=== PATIENT | male | born 1930 | race Caucasian/White ===

== ENCOUNTER 2019-01-21 09:45 | Emergency (ER) | payer MEDICARE, OTHER ==
--- NOTE | 2019-01-21 10:04 | ED Physician Documentation ---
History of Present Illness - Stated complaint Stated Complaint: HEADACHE - Chief complaint Chief Complaint: Neuro - History obtained from History obtained from: Patient - Additonal information Additional information: Patient is a 89-year-old male with history of hypertension, migraines, GERD presenting with headache similar to previous migraine episodes. Patient reports he has been diagnosed with migraines in the past and has had evaluation for such, although he does not take regular preventative medications or have treatment medications at home available to him. Patient reports that he often experiences a migraine about once a month that will resolve spontaneously. However, patient has felt his migraine-like pain over the past several days without inciting incident, fall, trauma, or illness. Patient describes frontal headache with photosensitivity and visual aura which she specifies as shapes and floaters. Patient denies other vision loss, nausea, vomiting, chest pain, difficulty breathing, abdominal pain, urinary or stool changes, fever. No other improving or worsening factors noted. Review of Systems Constitutional: denies: Fever Eyes: reports: Photophobia Cardiac: denies: Chest pain / pressure Respiratory: denies: Dyspnea GI: denies: Abdominal Pain, Nausea, Vomiting, Diarrhea : denies: Dysuria Neurologic: reports: Headache. denies: Generalized weakness, Focal weakness, Numbness, Head injury PD PAST MEDICAL HISTORY - Past Medical History Past Medical History: Yes Cardiovascular: Hypertension Neuro: Migraines GI: GERD : Other Other Past Medical History: prostate ca - Past Surgical History Past Surgical History: Yes General: Cholecystectomy Ortho: Shoulder arthroplasty, Other - Present Medications Home Medications: Ambulatory Orders Medication Instructions Recorded Confirmed Losartan [Cozaar] 50 mg PO DAILY 01/21/19 01/21/19 diazePAM [Valium] 5 mg PO DAILY PM 01/21/19 01/21/19 - Allergies Allergies/Adverse Reactions: Allergies Allergy/AdvReac Type Severity Reaction Status Date / Time No Known Drug Allergies Allergy Verified 01/21/19 09:55 - Social History Does the pt smoke?: No Smoking Status: Never smoker Does the pt drink ETOH?: No Does the pt have substance abuse?: No PD ED PE NORMAL - Vitals Vital signs reviewed: Yes - General General: Alert and oriented X 3, No acute distress, Well developed/nourished - HEENT HEENT: Atraumatic, PERRL (Gross visual acuity intact. No nystagmus.), EOMI, Moist mucous membranes, Pharynx benign - Neck Neck: Supple, no meningeal sign - Cardiac Cardiac: RRR, No murmur - Respiratory Respiratory: No respiratory distress, Clear bilaterally - Abdomen Abdomen: Soft, Non tender, Non distended - Derm Derm: Normal color, Warm and dry, No rash - Extremities Extremities: No deformity, No tenderness to palpate - Neuro Neuro: Alert and oriented X 3, No motor deficit, No sensory deficit - Psych Psych: Normal mood, Normal affect Results - Vitals Vitals: Vital Signs - 24 hr 01/21/19 01/21/19 01/21/19 09:53 11:33 12:00 Temperature 36.5 C Heart Rate 47 L 44 L 56 L Respiratory 18 16 15 Rate Blood Pressure 191/56 H 192/75 H 182/139 H O2 Saturation 99 100 97 Oxygen O2 Source Room air - Labs Labs: Laboratory Tests 01/21/19 01/21/19 01/21/19 12:40 12:40 12:40 WBC 4.5 L RBC 4.59 L Hgb 14.7 Hct 44.2 MCV 96.3 H MCH 32.0 H MCHC 33.3 RDW 11.9 L Plt Count 154 MPV 11.8 H Neut # (Auto) 2.9 Lymph # (Auto) 1.0 L [place] # (Auto) 0.5 Eos # (Auto) 0.1 Baso # (Auto) 0.0 Absolute Nucleated RBC 0.00 Nucleated RBC % 0.0 Sodium 141 Potassium 4.2 Chloride 106 Carbon Dioxide 24 Anion Gap 11.0 BUN 17 Creatinine 1.0 Estimated GFR (MDRD) 70 L Glucose 105 H Calcium 8.2 L Total Bilirubin 0.8 AST 18 ALT 16 Alkaline Phosphatase 68 Troponin I High Sens 4.3 Total Protein 6.2 L Albumin 3.4 Globulin 2.8 Albumin/Globulin Ratio 1.2 Lipase 25 PD MEDICAL DECISION MAKING - ED course Complexity details: reviewed results, re-evaluated patient, considered differential, d/w patient ED course: Patient is traveling from [place] and reports monthly migraine-like headaches for some time now that have acutely worsenedOver the last several days without other illness, inciting incident, or trauma. Patient denies neurological changes that raise high suspicion for intracranial injury, thrombus, bleed or stroke, but obtained CT head imaging to further evaluate. Patient also has history of hypertension and is hypertensive in the ED and therefore have concerns of hypertensive urgency or emergency. CT head did not find evidence of acute pathology, but chronic changes likely due to underlying disease processes. Patient also is adamant of a migraine history and known diagnoses for which she has been evaluated and symptoms are similar to such. Patient started on IV fluid, as well as migraine cocktail in addition to antihypertensive. Repeat blood pressures decreased appropriately and patient did report improvement of symptoms although not complete resolution. Screening lab work also obtained which returned relatively unremarkable including no evidence of elevated troponin, acute kidney injury, or significant pathology. Do not find evidence of acute endorgan damage otherwise. Had multiple conversations with patient emphasizing the need for close primary care follow-up even if only over the phone to discuss persistent elevated blood pressures and dosing of antihype rtensives and potential other medication therapy. Also discussed strict return precautions and other supportive cares. Patient voiced understanding and is comfortable with discharge plan. Departure - Departure Disposition: 01 Home, Self Care Clinical Impression: Headache Qualifiers: Headache type: unspecified Headache chronicity pattern: unspecified pattern Intractability: not intractable Qualified Code(s): R51 - Headache Hypertension Qualifiers: Hypertension type: unspecified Qualified Code(s): I10 - Essential (primary) h ypertension Condition: Good Instructions: ED Headache Migraine, ED HTN Established Follow-Up: your,doctor [Other] - Within 3 Days Comments: Please continue home medications as previously instructed. Please follow-up with your primary care physician in next 2 to 3 days to discuss persistent elev ation in your blood pressure and possible need to increase your blood pressure medication or even add a new blood pressure medication as this high blood pressure could be causing your headaches and other health issues. Return to ED sooner if experience worsening symptoms or have other concerns.
[2019-01-21] MEDS ORDERED: ONDANSETRON 4 MG/2 ML VIAL IVP STA (10:17)
[2019-01-21] MEDS ORDERED: METOCLOPRAMIDE 10 MG/2 ML VIAL IVP STA (10:17)
[2019-01-21] MEDS ORDERED: SODIUM CHLORIDE 0.9% 1,000 ML IV ONE (10:17)
[2019-01-21] MEDS ORDERED: diphenhydrAMINE INJ 50 MG/ML VIAL IVP STA (10:17)
--- NOTE | 2019-01-21 11:28 | CT Report ---
Reason: headache with htn, visual changes Procedure Date: 01/21/2019 Accession Number: [id number] / [id number] Procedure: CT - HEAD WO CPT Code: FULL RESULT: EXAM: CT HEAD EXAM DATE: 01/21/2019 10:46 AM. CLINICAL HISTORY: Headache with htn, visual changes. COMPARISON: None. TECHNIQUE: Multiaxial CT images were obtained from the foramen magnum to the vertex. Reformats: Sagittal and coronal. IV contrast: None. In accordance with CT protocol optimization, one or more of the following dose reduction techniques were utilized for this exam: automated exposure control, adjustment of mA and/or KV based on patient size, or use of iterative reconstructive technique. FINDINGS: Parenchyma: No intraparenchymal hemorrhage. No evidence of mass, midline shift, or CT findings of infarction. Palomares-white differentiation is distinct. Moderate patchy hypodensity in the periventricular white matter and centrum semiovale, nonspecific but probably chronic microvascular ischemic change. Extraaxial Spaces: Normal for age. No subdural or epidural collections identified. Ventricles: Normal in size and position accounting for mild generalized cerebral and cerebellar volume loss. Sinuses and Orbits: Probable small mucous retention cyst or polyp, right sphenoid sinus, left maxillary sinus, partially visualized. Imaged paranasal sinuses, orbits, and mastoids otherwise show no significant abnormality. Bones: No evidence of fracture or calvarial defect. Other: None. IMPRESSION: 1. No definite acute intracranial abnormality. 2. Chronic atrophic and probable microvascular ischemic changes as noted above. RADIA
[2019-01-21] MEDS ORDERED: METOPROLOL 5 MG/5 ML VIAL IVP STA (11:47)
[2019-01-21] MEDS ORDERED: LABETALOL 5 MG/1 ML 20 ML MDV IVP STA (11:47)
[2019-01-21 12:58] LABS: BASOPHILS % (AUTO) 0.7 %; EOSINOPHILS # (AUTO) 0.1 10^3/uL (0.0-0.7); EOSINOPHILS % (AUTO) 1.1 %; HGB - HEMOGLOBIN 14.7 g/dL (14.0-18.0); LYMPHOCYTES % (AUTO) 22.9 %; MEAN CORPUSCULAR HGB CONC 33.3 g/dL (32.0-36.0); MEAN CORPUSCULAR VOLUME 96.3 fL (80.0-94.0); MEAN PLATELET VOLUME 11.8 fL (7.4-11.4); MONOCYTES # (AUTO) 0.5 10^3/uL (0.0-1.0); MONOCYTES % (AUTO) 11.6 %; NEUTROPHILS # (AUTO) 2.9 10^3/uL (1.5-6.6); NEUTROPHILS % (AUTO) 63.3 %; PLT - PLATELET COUNT 154 10^3/uL (130-450); RED BLOOD COUNT 4.59 10^6/uL (4.70-6.10); RED CELL DISTRIBUTION WIDTH 11.9 % (12.0-15.0); WHITE BLOOD COUNT 4.5 x10^3/uL (4.8-10.8)
[2019-01-21 13:03] LABS: ALBUMIN 3.4 g/dL (3.2-5.5); ALBUMIN/GLOBULIN RATIO 1.2 (1.0-2.2); BILIRUBIN,TOTAL 0.8 mg/dL (0.2-1.0); CALCIUM 8.2 mg/dL (8.5-10.3); TOTAL PROTEIN 6.2 g/dL (6.7-8.2)
[2019-01-21 13:33] VITALS: BP 163/71
== END 2019-01-21 13:40 | disposition home or self-care (01) ==
LOC: ED 09:45
DX: R51 Headache (principal); H53.149 Visual discomfort, unspecified; I10 Essential (primary) hypertension; Z86.69 Personal history of other diseases of the nervous system and sense organs; K21.9 Gastro-esophageal reflux disease without esophagitis
CPT/HCPCS: 36415; 70450; 80053; 83690; 84484; 85025; 96361; 96374; 96375; 99284; 99285; J1200; J2765

== ENCOUNTER 2019-01-31 10:27 | Emergency (ER) | payer MEDICARE, OTHER ==
--- NOTE | 2019-01-31 11:28 | ED Physician Documentation ---
History of Present Illness - Stated complaint Stated Complaint: HIGH BLOOD PRESSURE - Chief complaint Chief Complaint: Neuro - History obtained from History obtained from: Patient - History of Present Illness Timing: Chronic Pain level max: 0 Pain level now: 0 - Additonal information Additional information: 89-year-old male states that his blood pressure has been high for the past few weeks. He normally does not check his blood pressure but has been checking it for the past few weeks. He states that his doctor increased his losartan from 50 mg a day to 100 mg a day. He states that he has chronic headaches for at least the last 6 months. Nothing makes his better or worse. States that he has had a CT and MRI Which were normal. Does not have any other history of lab abnormalities. No chest pain. No shortness of breath. No nausea or vomiting. Review of Systems Constitutional: denies: Fever, Chills GI: denies: Vomiting, Diarrhea Skin: denies: Rash Musculoskeletal: denies: Neck pain, Back pain Neurologic: denies: Focal weakness, Numbness, Confused, Altered mental status PD PAST MEDICAL HISTORY - Past Medical History Past Medical History: Yes Cardiovascular: Hypertension Neuro: Migraines GI: GERD : Other - Past Surgical History Past Surgical History: Yes General: Cholecystectomy Ortho: Shoulder arthroplasty, Other - Present Medications Home Medications: Ambulatory Orders Medication Instructions Recorded Confirmed Losartan [Cozaar] 50 mg PO DAILY 01/21/19 01/21/19 diazePAM [Valium] 5 mg PO DAILY PM 01/21/19 01/21/19 hydroCHLOROthiazide 25 mg PO DAILY #30 tablet 01/31/19 [Hydrochlorothiazide] - Allergies Allergies/Adverse Reactions: Allergies Allergy/AdvReac Type Severity Reaction Status Date / Time No Known Drug Allergies Allergy Verified 01/31/19 10:37 - Social History Does the pt smoke?: No Smoking Status: Never smoker Does the pt drink ETOH?: No Does the pt have substance abuse?: No PD ED PE NORMAL - Vitals Vital signs reviewed: Yes - General General: Alert and oriented X 3, No acute distress, Well developed/nourished - HEENT HEENT: Atraumatic, PERRL, Moist mucous membranes - Neck Neck: Supple, no meningeal sign - Cardiac Cardiac: RRR, Strong equal pulses - Respiratory Respiratory: No respiratory distress, Clear bilaterally - Abdomen Abdomen: Soft, Non tender, Non distended - Derm Derm: Warm and dry - Extremities Extremities: No edema - Neuro Neuro: Alert and oriented X 3, 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, No motor deficit, No sensory deficit, Normal speech Eye Opening: Spontaneous Motor: Obeys Commands Verbal: Oriented GCS Score: 15 - Psych Psych: Normal mood, Normal affect Results - Vitals Vitals: Vital Signs - 24 hr 01/31/19 01/31/19 01/31/19 10:33 10:42 11:32 Temperature 35.7 C L 36.5 C Heart Rate 54 L 46 L 47 L Respiratory 20 14 16 Rate Blood Pressure 151/82 H 190/62 H 178/55 H O2 Saturation 98 100 100 Oxygen O2 Source Room air PD MEDICAL DECISION MAKING - ED course Complexity details: reviewed old records, considered differential, d/w patient ED course: 89-year-old male with asymptomatic hypertension. We will add hydrochlorothiazide to his medication regimen. We will follow-up with his PCP with a log of his blood pressures so they can adjust his medications accordingly. No evidence of hypertensive crisis. No chest pain. No focal neurological deficits. Patient counseled regarding signs and symptoms for which I believe and urgent re-evaluation would be necessary. Patient with good understanding of and agreement to plan and is comfortable going home at this time This document was made in part using voice recognition software. While efforts are made to proofread this document, sound alike and grammatical errors may occur. Departure - Departure Disposition: 01 Home, Self Care Clinical Impression: Hypertension Qualifiers: Hypertension type: unspecified Qualified Code(s): I10 - Essential (primary) hypertension Condition: Good Instructions: ED HTN Established Follow-Up: your,doctor in 1 week [Other] Prescriptions: hydroCHLOROthiazide [Hydrochlorothiazide] 25 mg PO DAILY #30 tablet Comments: We will add hydrochlorothiazide to your losartan. Follow-up with your doctor for further care. Keep a log of your blood pressures to help your doctor adjust your medication. Your electrolytes should also be checked with your doctor within 1 week. Discharge Date/Time: 01/31/19 11:32
[2019-01-31 11:33] VITALS: BP 178/55
== END 2019-01-31 11:32 | disposition home or self-care (01) ==
LOC: ED 10:27
DX: I10 Essential (primary) hypertension (principal)
CPT/HCPCS: 99282; 99284